=== PATIENT | female | born 1970 | race Caucasian/White ===

== ENCOUNTER → 2016-12-16 | Outpatient (CLI) | payer OTHER ==
--- NOTE | 2016-12-16 07:48 | MR ---
EXAMINATION TYPE: MR venography head wo con DATE OF EXAM: 12/16/2016 6:52 AM COMPARISON: Prior MRI brain January 17, 2015. HISTORY: idiopathic intracranial hypertension, ms Standard multiplanar, multisequence MRI departmental protocol Multiplanar, multisequence images of the brain focusing on venous system were acquired. 2-D and 3-D r econstruction postprocessing imaging is performed. FINDINGS: There is satisfactory visualization of the superior sagittal and inferior sagittal sinus dr aining into the straight sinus. There is satisfactory visualization of the internal cerebral vein clark ining into the vein of Sherif and subsequent straight sinus. There is satisfactory visualization of bi lateral draining transverse and sigmoid sinuses training into bilateral internal jugular veins. IMPRESSION: No evidence for cerebral vein thrombosis. Unremarkable study.
== END ==
LOC: RADMRIMAIN 06:10
PROVIDERS: ATTEND Psychiatry & Neurology Neurology
DX: G43.809 Other migraine, not intractable, without status migrainosus (principal); G35 Multiple sclerosis
CPT/HCPCS: 70544

== ENCOUNTER → 2016-12-27 | Outpatient (CLI) | payer OTHER ==
--- NOTE | 2016-12-27 10:56 | MR ---
EXAMINATION TYPE: MR brain wo/w con DATE OF EXAM: 12/27/2016 10:40 AM COMPARISON: NONE HISTORY: Migraines, MS TECHNIQUE: Multiplanar, multiecho imaging of the brain was obtained with and without intravenous adm inistration of 20 mL intravenous MultiHance. FINDINGS: Midline structures are unremarkable. There is a normal craniocervical junction. Echoplanar diffusion imaging is normal. There are normal vascular flow voids. The orbits are normal. There is no evidence of a CP angle mass lesion. T2 Lesions Present : Yes Approximate Number of Lesions: 8-10. Locations Identified : Pericallosal, periventricular, and deep white matter lesions. No definitive in fratentorial involvement. Size of Largest Lesion(s): 1. 1.2 cm x 0.6 cm x 0.9 cm on axial image 26. Right parietal periventricu lar lesion felt stable. 2 0.9 cm x 0.7 cm x 0.9 cm on axial image 20.Left posterior frontal pericallo arnold lesion felt stable. Enhancing Lesion(s) Present: No, T1 burnout lesions are present. Change from Prior: Stable There is no mass effect, midline shift or intracranial blood. Following intravenous administration of gadolinium, I do not see evidence of abnormal enhancement. IMPRESSION: STABLE FINDINGS CONSISTENT WITH THE PATIENT'S HISTORY OF MULTIPLE SCLEROSIS.
== END | disposition home or self-care (01) ==
LOC: RADMRIMAIN 09:52
PROVIDERS: ATTEND Psychiatry & Neurology Neurology
DX: G43.809 Other migraine, not intractable, without status migrainosus (principal); G35 Multiple sclerosis
CPT/HCPCS: 70553; A9577

== ENCOUNTER → 2021-02-16 | Outpatient (CLI) | payer OTHER ==
--- NOTE | 2021-02-16 15:19 | MR ---
Result: History: M89.9 Bone lesion, right ankle. Comparison: None available. Technique: Multiplanar multisequence MRI imaging of the right ankle was performed before and after th e use of 10 mL Gadavist intravenous contrast. Findings: There is demonstration of 1 x 0.6 x 0.7 cm fairly homogenous, lobulated, rounded hyperintense T2/isoi ntense T1 circumscribed lesion in the lateral malleolus. There is mild thinning of the overlying velma ex. The lesion demonstrates a sclerotic rim with mild enhancement. No evidence of bony destruction, p eriosteal reaction, endosteal scalloping or soft tissue component. There is surrounding increased mil d T2 bone marrow signal without pathologic fracture. There is associated mild tendinosis of the peron eal tendons with tenosynovitis without tear seen. There is surrounding soft tissue edema without foca l fluid collection. There are scattered mild to moderate degenerative changes of the midfoot with cystic changes seen. Th ere is small ankle joint effusion. There is attenuation the anterior talofibular ligament in keeping with prior grade 1/2 sprain. The de ltoid and spring ligaments are grossly intact. The flexor, extensor and Achilles tendons are intact. The plantar fascia and sinus tarsi are preserved. There is additional mild soft tissue edema elsewhere about the ankle. No significant muscular atrophy . Impression: 1 cm mildly enhancing bone marrow lesion within the lateral malleolus without bony destruction or sof t tissue mass. Lesion features are overall suggestive of benign etiology such as chondroblastoma or i ntraosseous ganglion. Radiographic correlation will be helpful. No evidence of pathologic fracture at this time. Associated tenosynovitis of the peroneal tendons and surrounding mild soft tissue edema, compatible w ith reactive changes. Recommend clinical follow-up to stability. If there is change or worsening symptoms as well as increa se in size, recommend follow-up contrast enhanced imaging.
== END | disposition home or self-care (01) ==
LOC: RADMRIMAIN 11:44
PROVIDERS: ATTEND Podiatrist Foot & Ankle Surgery
DX: M65.9 Synovitis and tenosynovitis, unspecified (principal); M89.9 Disorder of bone, unspecified
CPT/HCPCS: 73723; A9585